=== PATIENT | male | born 1965 | race Caucasian/White ===

== ENCOUNTER 2022-07-08 13:26 | Outpatient (CLI) | payer MEDICAID, SELFPAY ==
[2022-07-08 17:04] LABS: Albumin* 4.7 g/dL (3.3-5.0); Chloride* 103 mmol/L (96-114)
[2022-07-08 17:05] LABS: Potassium* 4.1 mmol/L (3.6-5.1); Sodium* 138 mmol/L (135-149)
[2022-07-08 17:07] LABS: Alanine Aminotransferase* 33 U/L (4-50); Alkaline Phosphatase* 57 U/L (40-150); Aspartate Amino Transferase* 35 U/L (12-35); Bilirubin Total* 0.9 mg/dL (0.1-1.5); Blood Urea Nitrogen* 24 mg/dL (7-30); Carbon Dioxide* 30 mmol/L (20-32); Estimated Glomerular Filt Rate 88 ml/min; Glucose* 97 mg/dL (60-115); Total Protein* 7.5 g/dL (6.0-8.3)
[2022-07-08 17:08] LABS: Calcium* 9.4 mg/dL (8.4-10.6)
[2022-07-08 17:48] LABS: HIV 1/2/P24 Combo Screen* Negative (Negative)
== END 2022-07-08 13:27 | disposition home or self-care (01) ==
LOC: NFLDREF 13:46
PROVIDERS: PCP Family Medicine; Visit Provider Family Medicine
DX: Z71.7 Human immunodeficiency virus [HIV] counseling (principal)
CPT/HCPCS: 80053; 86703

== ENCOUNTER 2022-10-08 09:37 | Outpatient (CLI) | payer MEDICAID, SELFPAY | END 2022-10-08 09:38 | disposition home or self-care (01) | PROVIDERS: PCP Family Medicine; Visit Provider Family Medicine | DX: Z00.00 Encounter for general adult medical examination without abnormal findings (principal); I10 Essential (primary) hypertension; E78.5 Hyperlipidemia, unspecified | CPT/HCPCS: 80053; 80061 ==

== ENCOUNTER 2023-05-26 15:05 | Outpatient (CLI) | payer MEDICAID, SELFPAY ==
--- NOTE | 2023-05-26 15:30 | CRLHL7_ITS ---
For Patients: As a result of the Century Cures Act, medical imaging exams and procedure reports are released immediately into your electronic medical record. You may view this report before your referring provider. If you have questions, please contact your health care provider. INDICATION: Low back pain. Sciatica. TECHNIQUE: Noncontrast sagittal and axial T1, T2, and sagittal STIR sequences are provided. No comparisons. FINDINGS: Minimal chronic compression deformity of the superior T12 vertebral body. The overall stature, alignment and intrinsic marrow signal within the remainder of the lumbar spine is within normal limits. Conus is normal. T12-L1, L1-2, L2-3: Unremarkable. L3-4: Mild left lateral disc bulge results in mild contact of the exiting left L3 nerve root laterally. No central canal or right foraminal narrowing. L4-5: Mild bilateral facet arthropathy that is worse on the left with a left lateral recess disc protrusion that extends 5 millimeters beyond the posterior vertebral body margin resulting in severe left lateral recess narrowing and compression of the traversing left L5 nerve root. Mild to moderate central canal narrowing. Neural foramina are patent. L5-S1: No central canal or foraminal narrowing. IMPRESSION: 1. Severe left lateral recess narrowing at L4-5 resulting in compression of the traversing left L5 nerve root with mild to moderate central canal narrowing. 2. Mild left lateral disc bulge at L3-4 resulting in mild contact of the exiting left L3 nerve root laterally. Dictated by Wayne Rasmussen MD @ 05/27/2023 7:44:44 PM (Electronically Signed)
== END 2023-05-26 15:06 | disposition home or self-care (01) ==
LOC: MRI 15:06
PROVIDERS: PCP Family Medicine; Visit Provider Internal Medicine
DX: M54.40 Lumbago with sciatica, unspecified side (principal); M51.26 Other intervertebral disc displacement, lumbar region
CPT/HCPCS: 72148

== ENCOUNTER 2023-08-05 13:00 | Outpatient (RCR) | payer MEDICAID, SELFPAY | END 2023-10-29 11:32 | disposition home or self-care (01) | PROVIDERS: PCP Family Medicine; Visit Provider Family Medicine | DX: M54.30 Sciatica, unspecified side (principal); M62.830 Muscle spasm of back; M54.16 Radiculopathy, lumbar region; M54.50 Low back pain, unspecified; Z51.89 Encounter for other specified aftercare | CPT/HCPCS: 97110; 97140; 97162 ==